=== PATIENT | female | born 2000 | race Caucasian/White ===

== ENCOUNTER 2023-12-27 05:59 | Outpatient (REF) | payer BC, SELFPAY ==
--- NOTE | ~2023-12-27 | US_ITS ---
EXAMINATION: US PELVIS CLINICAL INFORMATION: IUD removal one week ago, assess uterus, last menstrual period December 15, 2023. COMPARISON: None available. TECHNIQUE: Ultrasound of the pelvis is performed using both transabdominal and transvaginal transducers along with Doppler. Transvaginal imaging is performed due to inadequate visualization transabdominally. FINDINGS: The uterus is anteverted and measures 9.1 x 3.5 x 4.3 cm. Endometrial thickness is 12 mm. No significant free fluid. Right ovary measures 3.1 x 1.8 x 2.2 cm, volume 6.3 mL and is unremarkable. Left ovary measures 3.0 x 1.6 x 2.4 cm, volume 5.9 mL. Left ovarian 1.7 x 1.4 x 1.5 cm cyst is likely simple. There is no specific indication for additional imaging at this time. US/US pelvic and transvaginal IMPRESSION: Endometrial thickness is 12 mm. No discrete fibroid identified. This study was presented today December 27, 2023 for interpretation. Stat results provided at this time as requested by referring provider.
== END 2023-12-27 06:00 | disposition home or self-care (01) ==
LOC: HO.UMASIMG 05:59
PROVIDERS: Visit Provider Nurse Practitioner Women's Health
DX: Z30.431 Encounter for routine checking of intrauterine contraceptive device (principal); T85.22XA Displacement of intraocular lens, initial encounter
CPT/HCPCS: 76830; 76856

== ENCOUNTER 2024-02-14 06:36 | Outpatient (REF) | payer BC, SELFPAY ==
--- NOTE | ~2024-02-14 | US_ITS ---
EXAMINATION: US PELVIS CLINICAL INFORMATION: IUD check. COMPARISON: December 27, 2023 TECHNIQUE: Ultrasound of the pelvis is performed using both transabdominal and transvaginal transducers along with Doppler. Transvaginal imaging is performed due to inadequate visualization transabdominally. FINDINGS: The uterus is anteverted and measures 6.5 x 3.8 x 4.8 cm. Endometrial thickness is 8 mm. IUD appears to be incorrectly positioned with inferior tip extending past the internal cervical os. The right arm appears to extend into the lower uterine segment myometrial with inferior tip extending into the pelvis, 6.5 cm. It is difficult to ascertain precise relationship of IUD to adjacent structures. No significant free fluid. Right ovary measures 2.3 x 3.1 x 2.2 cm, volume 8.2 mL and is unremarkable. Left ovary measures 2.7 x 2.6 x 3.2 cm, volume 11.6 mL. Left ovarian 1.3 x 1.1 x 1.0 cm likely simple cyst. Previous exam demonstrated a left ovarian likely simple cyst measuring 1.7 x 1.4 x 1.5 cm. There is no specific indication for additional imaging at this time. US/US pelvic and transvaginal IMPRESSION: IUD appears to be incorrectly positioned with inferior tip extending past the internal cervical os. The right arm appears to extend into the lower uterine segment myometrial with inferior tip extending into the pelvis, 6.5 cm. It is difficult to ascertain precise relationship of IUD to adjacent structures. Prompt gynecologic consultation recommended to determine further management including possible removal/repositioning of the IUD. This study was presented today March 05, 2024 for interpretation. Stat results provided at this time as requested by referring provider.
== END 2024-02-14 06:37 | disposition home or self-care (01) ==
LOC: HO.UMASIMG 06:36
PROVIDERS: Visit Provider Family Medicine
DX: Z30.431 Encounter for routine checking of intrauterine contraceptive device (principal); T83.32XD Displacement of intrauterine contraceptive device, subsequent encounter
CPT/HCPCS: 76830; 76856